=== PATIENT | male | born 1960 | race Caucasian/White ===

== ENCOUNTER 2023-08-05 08:15 | Day surgery (SDC) | payer OTHER ==
[~2023-08-05] VITALS: Ht 165.1 cm; Wt 70.9 kg
[2023-08-05] MEDS ORDERED: B-12500 MC2 PO (08:34)
[2023-08-05] MEDS ORDERED: Aspir 8181 MG PO (08:35)
[2023-08-05] MEDS ORDERED: Lidocaine HCl 2% 10 ML SDA ONE (08:37)
[2023-08-05] MEDS ORDERED: NS 50 ML IV ONE (08:52)
[2023-08-05] MEDS ORDERED: Lactated Ringer's 1,000 ML IV ONE ×2 (08:52→09:04)
[2023-08-05] MEDS ORDERED: CeFAZolin Sodium 2,000 MG VIAL ONE (08:52)
[2023-08-05] MEDS ORDERED: FentaNYL Citrate 50 MCG/ML 2 ML Injection ONE (09:31)
[2023-08-05] MEDS ORDERED: Midazolam HCl 1MG / ML 2ML Vial ONE (09:31)
[2023-08-05] MEDS ORDERED: propofoL 40 ML IV ONE (10:03)
[2023-08-05] MEDS ORDERED: Ondansetron HCl 2 MG / ML 2ML Vial ONE (10:22)
[2023-08-05] MEDS ORDERED: Dexamethasone Sod Phos 10 MG/ML 1ML VIAL ONE (10:22)
[2023-08-05 11:22] VITALS: BP 128/72
== END 2023-08-05 11:56 | disposition home or self-care (01) ==
LOC: ORSCSDS 08:15
PROVIDERS: Orthopaedic Surgery
PROC: 0RQS0ZZ Repair Right Carpometacarpal Joint, Open Approach (ICD-10-PCS; principal; 2023-08-05 09:30)
PROC: 0LN70ZZ Release Right Hand Tendon, Open Approach (ICD-10-PCS; principal; 2023-08-05 09:30)
DX: M18.11 Unilateral primary osteoarthritis of first carpometacarpal joint, right hand (principal); M65.331 Trigger finger, right middle finger; K21.9 Gastro-esophageal reflux disease without esophagitis; Z79.899 Other long term (current) drug therapy; Z79.82 Long term (current) use of aspirin
CPT/HCPCS: C1713; J0690; J1100; J2001; J2250; J2405; J2704; J3010; J7120

== ENCOUNTER 2023-12-28 06:28 | Day surgery (SDC) | payer OTHER ==
[~2023-12-28] VITALS: Ht 165.1 cm; Wt 69.1 kg
[~2023-12-28 06:28] MED LIST: Aspir 8181 MG PO; B-12500 MC2 PO
[2023-12-28] MEDS ORDERED: OMEP20ER PO (07:13)
[2023-12-28] MEDS ORDERED: Lactated Ringer's 1,000 ML IV ONE (07:21)
--- NOTE | 2023-12-28 07:25 | NUR ---
12/28/23 0725 Candy Macdonald 0722: TIMEOUT FOR PRE-OP INJECTION 0725: PRE-OP INJECTION COMPLETED BY DR MORRISON
[2023-12-28] MEDS ORDERED: Midazolam HCl 1MG / ML 2ML Vial ONE (07:42)
[2023-12-28 08:29] VITALS: BP 128/84
== END 2023-12-28 08:41 | disposition home or self-care (01) ==
LOC: ORSCSDS 06:28
PROVIDERS: Orthopaedic Surgery
PROC: 01N54ZZ Release Median Nerve, Percutaneous Endoscopic Approach (ICD-10-PCS; principal; 2023-12-28 08:00)
DX: G56.01 Carpal tunnel syndrome, right upper limb (principal); K21.9 Gastro-esophageal reflux disease without esophagitis; Z79.899 Other long term (current) drug therapy
CPT/HCPCS: J2250

== ENCOUNTER 2024-10-25 07:21 | Day surgery (SDC) | payer OTHER ==
[~2024-10-25] VITALS: Ht 162.6 cm; Wt 67.1 kg
[~2024-10-25 07:21] MED LIST changes: +OMEP20ER PO
[2024-10-25 10:00] VITALS: BP 122/82
--- NOTE | 2024-10-25 10:13 | NUR ---
10/25/24 1013 MARY ANNE LAKHANI IV DCD AT END OF EXAM IN ENDO 1. RDS
== END 2024-10-25 09:59 | disposition home or self-care (01) ==
LOC: ORSCSDS 07:21
PROVIDERS: Specialist
PROC: 0DBK8ZX Excision of Ascending Colon, Via Natural or Artificial Opening Endoscopic, Diagnostic (ICD-10-PCS; principal; 2024-10-25 08:45)
PROC: 0DBM8ZX Excision of Descending Colon, Via Natural or Artificial Opening Endoscopic, Diagnostic (ICD-10-PCS; principal; 2024-10-25 08:45)
PROC: 0DB78ZX Excision of Stomach, Pylorus, Via Natural or Artificial Opening Endoscopic, Diagnostic (ICD-10-PCS; principal; 2024-10-25 08:45)
PROC: 0DB58ZX Excision of Esophagus, Via Natural or Artificial Opening Endoscopic, Diagnostic (ICD-10-PCS; principal; 2024-10-25 08:45)
PROC: 0D758ZZ Dilation of Esophagus, Via Natural or Artificial Opening Endoscopic (ICD-10-PCS; principal; 2024-10-25 08:45)
DX: K21.9 Gastro-esophageal reflux disease without esophagitis (principal); Z12.11 Encounter for screening for malignant neoplasm of colon; Z86.0100 Personal history of colon polyps, unspecified; R13.10 Dysphagia, unspecified; D12.2 Benign neoplasm of ascending colon; D12.4 Benign neoplasm of descending colon; K29.70 Gastritis, unspecified, without bleeding; K64.8 Other hemorrhoids; K57.30 Diverticulosis of large intestine without perforation or abscess without bleeding; Z79.899 Other long term (current) drug therapy
CPT/HCPCS: 88305; 88312; 88342; C1769; J2704; J7120

== ENCOUNTER 2024-12-26 06:55 | Day surgery (SDC) | payer OTHER ==
[~2024-12-26] VITALS: Ht 162.6 cm; Wt 66.3 kg
[~2024-12-26 06:55] MED LIST changes: +Lidocaine 1%-Epineph 1:100000 20 ML MDV ONE; +Lidocaine HCl 2% 10 ML SDA ONE; +Sodium Bicarb 8.4% 1 MEQ/ML 50 ML Vial ONE
[2024-12-26] MEDS ORDERED: Percocet 5-3251 EACH PO (07:40)
[2024-12-26] MEDS ORDERED: CeFAZolin Sodium 2,000 MG VIAL ONE (07:47)
[2024-12-26] MEDS ORDERED: Midazolam HCl 1MG / ML 2ML Vial ONE ×2 (08:48→09:07)
--- NOTE | 2024-12-26 08:53 | NUR ---
12/26/24 [address] MORRISON AT BEDSIDE FOR INJECTION. T/O PERFORMED, PT RECEIVED 8ML LIDOCAINE 1% MIXED WITH SODIUM BICARB. PT CHAITANYA WELL.
[2024-12-26 09:28] VITALS: BP 126/77
== END 2024-12-26 09:55 | disposition home or self-care (01) ==
LOC: ORSCSDS 06:55
PROVIDERS: Orthopaedic Surgery
PROC: 0JX Subcutaneous Tissue and Fascia, Transfer (ICD-10-PCS; principal; 2024-12-26 08:30)
PROC: 0JBG0ZX Excision of Right Lower Arm Subcutaneous Tissue and Fascia, Open Approach, Diagnostic (ICD-10-PCS; principal; 2024-12-26 08:30)
PROC: 01N50ZZ Release Median Nerve, Open Approach (ICD-10-PCS; principal; 2024-12-26 08:30)
DX: G56.01 Carpal tunnel syndrome, right upper limb (principal); M18.0 Bilateral primary osteoarthritis of first carpometacarpal joints; K21.9 Gastro-esophageal reflux disease without esophagitis; Z79.899 Other long term (current) drug therapy
CPT/HCPCS: 88304; 88313; J0690; J2003; J2250; J7120